=== PATIENT | male | born 1995 | race Caucasian/White ===

== ENCOUNTER 2020-04-12 22:49 | Emergency (ER) | payer MEDICAID ==
[~2020-04-12] VITALS: Ht 167.6 cm; Wt 98.2 kg
[2020-04-12 22:50] VITALS: BP 155/85
[2020-04-12] MEDS ORDERED: DIPH,PERTUSS(ACELL),TET VAC/PF 0.5 ML IM-VACC ONE ×2 (23:03→23:30)
[2020-04-12] MEDS ORDERED: NEOSPORIN OINT. PKT 1 PACKET ONE (23:25)
== END 2020-04-12 23:41 | disposition home or self-care (01) ==
LOC: ED 23:22
DX: S61.432A Puncture wound without foreign body of left hand, initial encounter (principal); S60.552A Superficial foreign body of left hand, initial encounter; X58.XXXA Exposure to other specified factors, initial encounter; Y93.89 Activity, other specified; Y92.009 Unspecified place in unspecified non-institutional (private) residence as the place of occurrence of the external cause; Y99.8 Other external cause status
CPT/HCPCS: 90471; 90715; 99284

== ENCOUNTER 2020-04-30 08:29 | Emergency (ER) | payer MEDICAID ==
[~2020-04-30] VITALS: Ht 167.6 cm; Wt 99.2 kg
[2020-04-30 08:48] VITALS: BP 117/80
--- NOTE | 2020-04-30 09:21 | NUR ---
PATIENT WALKED BACK FROM TRIAGE WITH CHIEF C/O COUGH, NASAL CONGESTION, DIARRHEA, BODY ACHES X 5 DAYS. PATIENT DENIES VOMITTING, FEVER, OR LOSS OF SMELL/TASTE. NO ACUTE SIGNS OF DISTRESS, CONNECTED TO VITAL SIGN MACHINE. ERMD AT BEDSIDE FOR EVALUATION.
--- NOTE | 2020-04-30 09:29 | NUR ---
PROVIDER COLLECTED COVID SAMPLE AND WALKED TO LAB.
--- NOTE | 2020-04-30 09:57 | NUR ---
Patient given discharge instructions and they have confirmed that they understand the instructions, questions answered. Patient ambulatory with steady gait out through lobby.
== END 2020-04-30 09:58 | disposition home or self-care (01) ==
LOC: ED 09:16
DX: J00 Acute nasopharyngitis [common cold] (principal)
CPT/HCPCS: 36415; 87635; 99281; 99283